=== PATIENT | female | born 1945 | race Caucasian/White ===

== ENCOUNTER → 2017-04-29 | Day surgery (SDC) | payer MEDICARE, BC ==
[~2017-04-29] MED LIST: ALLEGRA180 MG PO; ASPIRIN81 M1 PO; B-12500 MCG PO; BUSPAR PO; CALCIUM500 MG PO; CELEXA20 M1 PO; CELEXA20 MG PO; CENTRUM PO; CENTRUM SILVER PO; LO-DOSE ASPIRIN81 M1 PO; MONTELUKAST SOD10 MG PO; NEURONTIN300 MG PO; NEXIUM PO; OMEPRAZOLE40 M1 PO; SIMVASTATIN40 MG PO; VALIUM2 MG PO; VITAMIN B12-FO1 EACH PO; VITAMIN C500 MG PO; VITAMIN D31000 UNIT PO; ZOLPIDEM TARTRAT5 M1 PO; ZOLPIDEM TARTRAT5 MG PO; ZYRTEC10 M1 PO
--- NOTE | ~2017-04-29 | OR ---
Unit #: [id number] #: [id number] Patient: ODESSA HATFIELD [id number] [address] [place], [place] [address] [id number] MR#: [id number] NAME: ODESSA HATFIELD ROOM: Date of Procedure: 04/29/2017 Admission Date: 04/29/2017 Surgeon: Tony Mccoy M.D. : 1945 Attending Physician: Tony Mccoy M.D. Primary Care Physician: Kalyan Neal M.D. OPERATIVE REPORT PREOPERATIVE DIAGNOSES The patient has presented with history of diverticulitis which has since resolved with antibiotics. In addition, she had a history of watery nonbloody diarrhea. At the present time, just before the examination, she is totally asymptomatic. She has had left lower quadrant abdominal pain, which is also resolved. PROCEDURES PERFORMED Colonoscopy and random biopsies. POSTOPERATIVE DIAGNOSES Mild sigmoid and descending colon diverticulosis. Otherwise, completely normal examination up to cecum. The quality of the prep was excellent. No polyps were present or seen. RECOMMENDATIONS No further evaluation is indicated. The patient will be reassured and discharged. She will follow up in the office in 3 months' time. SEDATION USED MAC. DESCRIPTION OF PROCEDURE Following detailed explanation of potential risks and complications of a colonoscopy, namely perforation, bleeding, and complications related to sedation, the patient was brought to GI lab and laid in the left lateral decubitus position. A digital rectal examination was performed, which was normal. Lubricated tip of the Olympus video colonoscope was inserted through the anus and advanced under direct vision. The scope was advanced past rectosigmoid into descending colon. Multiple small to medium-sized diverticula were noted in this area. The scope tip was then navigated all the way up to cecum with visualization of the ileocecal valve and the appendiceal orifice. Preparation was excellent with good visualization and photodocumentation was obtained. Successive segments of the colonic mucosa were examined upon withdrawal and appeared unremarkable. There being no polyps, mass lesions, or AVMs. Other than the left-sided diverticula, no other abnormalities were noted. Multiple random colonic biopsies were obtained from throughout the colon to rule out microscopic or collagenous colitis. The patient did not have any hemorrhoids at the anal verge. The scope was then withdrawn and the patient returned to the recovery area. She tolerated the procedure without any postprocedure complications. Unit #: [id number] #: [id number] Patient: ALYSIAODESSA Castro Dexter Mc/willem TD: 04/29/2017 11:19 JOB #: [id number] CC: Kalyan Neal M.D. OPERATIVE REPORT Page 1 of 1 X Tony Mccoy MD X PROCEDURE OPERATIVE NOTE
== END | disposition home or self-care (01) ==
LOC: COPS 06:07
DX: Z12.11 Encounter for screening for malignant neoplasm of colon (principal); K57.30 Diverticulosis of large intestine without perforation or abscess without bleeding; K21.9 Gastro-esophageal reflux disease without esophagitis; E78.5 Hyperlipidemia, unspecified; M17.9 Osteoarthritis of knee, unspecified; Z87.19 Personal history of other diseases of the digestive system; Z90.710 Acquired absence of both cervix and uterus; Z90.49 Acquired absence of other specified parts of digestive tract; Z88.8 Allergy status to other drugs, medicaments and biological substances; Z86.73 Personal history of transient ischemic attack (TIA), and cerebral infarction without residual deficits; Z79.82 Long term (current) use of aspirin; Z79.899 Other long term (current) drug therapy
CPT/HCPCS: 88305